=== PATIENT | female | born 1960 | race African-American/Black ===

== ENCOUNTER 2020-12-09 15:18 | Emergency (ER) | payer MEDICAID ==
[~2020-12-09] VITALS: Ht 165.1 cm; Wt 66.3 kg
[2020-12-09 15:38] VITALS: BP 176/94
--- NOTE | 2020-12-09 15:54 | NUR ---
C/O right leg swelling x 7 days. denies trauma to area. pmh: Sjorens syndrome, RA, pulmo fibrosis
--- NOTE | 2020-12-09 18:33 | NUR ---
applied blaine wrap to right leg
--- NOTE | 2020-12-09 19:00 | NUR ---
Patient discharged with v/s stable. Written and verbal after care instructions given and explained. Patient verbalized understanding. Ambulatory with steady gait. All questions addressed prior to discharge. Advised to follow up with PMD.
[2020-12-09 19:01] VITALS: BP 176/94
== END 2020-12-09 19:00 | disposition home or self-care (01) ==
LOC: MED 15:18
DX: M71.21 Synovial cyst of popliteal space [Baker], right knee (principal); Z88.1 Allergy status to other antibiotic agents; Z98.890 Other specified postprocedural states
CPT/HCPCS: 73590; 93971; 99284

== ENCOUNTER 2021-07-08 10:10 | Emergency (ER) | payer BC, MEDICAID ==
[~2021-07-08] VITALS: Ht 165.1 cm; Wt 64.4 kg
[2021-07-08 10:13] VITALS: BP 147/72
--- NOTE | 2021-07-08 10:38 | NUR ---
61/F presents to ED with c/o chest pain and cough. Patient states for 3 days she has had worsening chest pain worsening when coughing. Reports pain is 7/10 sharp, mid upper chest, non radiating, reports taking Ibuprofen at home for pain with no relief. Patient denies shortness of breath, abdominal pain, nausea, vomiting or diarrhea. Patient has non productive cough for 4 days, not c/o of any other cold symptoms at this time. EMT bedside for EKG.
--- NOTE | 2021-07-08 10:40 | NUR ---
Labs collected bedside and walked to lab.
--- NOTE | 2021-07-08 10:42 | NUR ---
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
[2021-07-08 11:19] LABS: ALBUMIN 2.8 g/dL (3.4-5.0); ANION GAP 9.3 (8-16); CARBON DIOXIDE 28.3 mmol/L (21-32); CREATININE 0.9 mg/dL (0.6-1.3); POTASSIUM 3.6 mmol/L (3.5-5.1); TOTAL BILIRUBIN 0.3 mg/dL (0.0-1.0)
--- NOTE | 2021-07-08 11:42 | NUR ---
Patient being evaluated by Dr. Isabel at bedside.
[2021-07-08] MEDS ORDERED: ACETAMINOPHEN EXTRA STRENGTH 500 MG TAB PO ONE (12:50)
[2021-07-08 13:04] LABS: BASOPHILS % (AUTO) 0.4 % (0.0-2.0); EOSINOPHILS # (AUTO) 0.2 K/uL (0-0.4); HEMATOCRIT 29.5 % (36-48); HEMOGLOBIN 9.5 g/dL (12.0-16.0); LYMPHOCYTES % (AUTO) 15.5 % (20.5-51.1); MEAN CORPUSCULAR HEMOGLOBIN 25 pg (27-31); MEAN CORPUSCULAR HGB CONC 32 g/dL (33-37); MEAN CORPUSCULAR VOLUME 78.9 fL (80-94); MONOCYTES # (AUTO) 0.6 K/uL (0.8-1.0); MONOCYTES % (AUTO) 9.6 % (1.7-9.3); NEUTROPHILS # (AUTO) 4.3 K/uL (1.8-7.7); NEUTROPHILS % (AUTO) 70.5 % (42.2-75.2); PLATELET COUNT (AUTO) 533 K/uL (140-450); RED BLOOD CELL COUNT(AUTO) 3.74 MIL/uL (4.20-5.40); RED CELL DISTRIBUTION WIDTH 18.4 % (11.6-13.7); WHITE BLOOD COUNT (AUTO) 6.1 K/uL (4.8-10.8)
[2021-07-08] MEDS ORDERED: AZIT250T4 PO (16:24)
[2021-07-08] MEDS ORDERED: CEFP200T20 PO (16:24)
[2021-07-08 16:45] VITALS: BP 141/63
--- NOTE | 2021-07-08 16:45 | NUR ---
Patient discharged with v/s stable. Written and verbal after care instructions given about community-acquired pneumonia and explained. Patient alert, oriented and verbalized understanding of instructions. Ambulatory with steady gait. All questions addressed prior to discharge. ID band removed. Patient advised to follow up with PMD. Rx of Zithromax z pack and cefpodoxime proxetil given. Patient educated on indication of medication including possible reaction and side effects. Opportunity to ask questions provided and answered.
== END 2021-07-08 16:45 | disposition home or self-care (01) ==
LOC: MED 10:10
DX: R07.9 Chest pain, unspecified (principal); Z88.1 Allergy status to other antibiotic agents
CPT/HCPCS: 36415; 71045; 71275; 80053; 83690; 83880; 84484; 85025; 85379; 93005; 99285; Q9967

== ENCOUNTER 2021-09-15 16:32 | Emergency (ER) | payer BC, MEDICAID ==
[~2021-09-15] VITALS: Ht 165.1 cm; Wt 71.7 kg
[~2021-09-15 16:32] MED LIST: AZIT250T4 PO; CEFP200T20 PO
[2021-09-15 16:41] VITALS: BP 154/112
--- NOTE | 2021-09-15 19:03 | NUR ---
Patient ambulated with steady gait to bed 12.
--- NOTE | 2021-09-15 19:30 | NUR ---
RECEIVED IN BED 12 WITH C/O LLE PAIN AND SWELLING. PT ATATES SHE WAS SENT HERE BY PMD. PMH : RA, PULMONARY FIBROSIS, SJORGENS SYNDROME ALLERGIES : SULFA, TCN
--- NOTE | 2021-09-15 20:22 | NUR ---
US AT PT BEDSIDE.
[2021-09-15 21:07] VITALS: BP 141/94
== END 2021-09-15 21:08 | disposition home or self-care (01) ==
LOC: MED 16:32
DX: M79.662 Pain in left lower leg (principal); Z88.2 Allergy status to sulfonamides; Z88.1 Allergy status to other antibiotic agents
CPT/HCPCS: 93971; 99284; Q0092